=== PATIENT | female | born 1960 | race Caucasian/White ===

== ENCOUNTER 2025-06-19 06:42 | Day surgery (SDC) | payer MEDICARE ==
[2025-06-17 14:10] LABS: CREATININE 0.8 mg/dL (0.5-1.0); GLOMERULAR FILTR. RATE CALC 81.0 mL/min (>90); GLUCOSE,RANDOM 128.0 mg/dL (70-105); IMMATURE GRANULOCYTE ABSOLUTE 0.06 K/uL (0-1); NUCLEATED RED BLOOD CELLS 0.0 % (0.0-0.19); PLATELET COUNT (AUTO) 235 K/uL (130-400); RED BLOOD CELL COUNT(AUTO) 4.62 MIL/uL (4.00-5.50); RED CELL DISTRIBUTION WIDTH 12.6 % (11.0-15.5); SODIUM SERUM 140.0 mmol/L (136-145); UREA NITROGEN, BLOOD 17.0 mg/dL (7-18); WHITE BLOOD COUNT (AUTO) 7.7 K/uL (4.8-10.8)
[2025-06-17 14:22] LABS: INR 0.99 (0.85-1.15)
[2025-06-17 14:44] VITALS: BP 146/80; PULSE 77; RESP 15; TEMP 97.7
--- NOTE | 2025-06-17 16:23 | EKG ---
[facility] Test Date: 2025-06-17 Test Time: 14:44:35 Pat Name: SINAI JOYCE Department: [facility] Room: Gender: F Family Dinner Service Specialist: [id number] : 1960 Requested By: SUJATA WHITTAKER Order Number: [id number] Reading MD: Jami Tate Measurements Intervals Dania Rate: 80 P: 12 LA: 147 QRS: 37 QRSD: 86 T: 52 QT: 390 QTc: 450 Interpretive Statements Sinus rhythm Compared to ECG 04/22/2025 10:06:41 No significant changes Electronically Signed On 06-18-2025 12:29:21 ALUM OPERATOR by Jami Tate Please click the below link to view image of tracing.
[~2025-06-19] VITALS: Ht 149.9 cm; Wt 69.3 kg
[2025-06-19] VITALS (15 sets, daily range): BP systolic 140–161; BP diastolic 68–90; PULSE 68–84; RESP 14–20; TEMP 97–97.7
[~2025-06-19 06:42] MED LIST: DICL20GE TP
[2025-06-19] MEDS ORDERED: SUGAMMADEX SODIUM 200 MG/2 ML VIAL IV ONE (07:38)
[2025-06-19] MEDS ORDERED: FAMOTIDINE 20MG VIAL IV ONE (07:38)
[2025-06-19] MEDS ORDERED: LIDOCAINE PF 100MG/5ML (2%) SYRINGE 5ML ONE (07:41)
[2025-06-19] MEDS ORDERED: SUCCINYLCHOLINE CHLORIDE 20 MG/ML 10 ML VIAL ONE (07:42)
[2025-06-19] MEDS ORDERED: GLYCOPYRROLATE 0.2 MG/ML 5 ML VIAL ONE (07:42)
[2025-06-19] MEDS ORDERED: NEOSTIGMINE METHYLSULFATE 1MG/ML IV ONE (07:43)
[2025-06-19] MEDS ORDERED: MIDAZOLAM HCL 1 MG/ML 2ML VIAL ONE (07:44)
[2025-06-19] MEDS ORDERED: LACTATED RINGERS 1000ML 1,000 ML IV ONE (07:46)
[2025-06-19] MEDS ORDERED: BUPR300T53 PO (08:59)
[2025-06-19] MEDS ORDERED: GLUC1TAB61 PO (08:59)
[2025-06-19] MEDS ORDERED: LISI40TA15 PO (08:59)
[2025-06-19] MEDS ORDERED: ACET-66 PO (08:59)
[2025-06-19] MEDS ORDERED: CITA10TA89 PO (08:59)
[2025-06-19] MEDS ORDERED: OXYB5TAB20 PO (08:59)
[2025-06-19] MEDS ORDERED: PROMETHAZINE HCL 25 MG/ML 1ML AMPULE IM PRN (09:30)
[2025-06-19] MEDS ORDERED: HYDR-4060 PO (13:19)
[2025-06-19] MEDS ORDERED: CYCL5TAB3 PO (13:19)
--- NOTE | 2025-06-20 17:45 | OP ---
Operative Note: DATE OF PROCEDURE: 06/19/25 SURGEON: SUJATA WHITTAKER MD AUTOMATIC LATHE OPERATOR: Maria C Frost ANESTHESIA: General and interscalene block ANESTHESIOLOGIST/ACCOUNT GROUP SUPERVISOR: LISBETH Tavera PREOPERATIVE DIAGNOSIS: Left shoulder rotator cuff tear, subacromial impingement, acromioclavicular joint osteoarthritis POSTOPERATIVE DIAGNOSIS: Left shoulder rotator cuff tear, subacromial impingement, acromioclavicular joint osteoarthritis PROCEDURE: Left shoulder arthroscopic rotator cuff tear completion and repair, labral debridement, subacromial decompression, distal clavicle resection ESTIMATED BLOOD LOSS: 10 cc FINDINGS: On insertion of the arthroscope into the joint there was significant synovitis and degenerative labral tearing obstructing the view. After we established an anterior portal we debrided the labrum with the electrocautery Wand and debrided the synovitis likewise. We were then able to evaluate the long head of the biceps that appeared to be in good shape. The attachment of the long head of the biceps to the labrum appeared healthy. There was high- grade partial-thickness tearing of the supraspinatus adjacent to the long head of the biceps. This appeared to mostly involve the anterior portion of the supraspinatus. Low-grade partial-thickness tearing as we got around to the infraspinatus. After removing the subacromial bursa we identified the partial- thickness tear with a marking suture and completed a tear adjacent to the long head of the biceps. This was repaired then using a single FiberTape in mattress fashion with a single suture anchor. We then further completed subacromial to debridement using the bur to resect any inferiorly projecting bone spurs in a proximally2 mm of bone from the undersurface of the acromion. We also used the bur to resect the lateral8 mm of the distal clavicle. INDICATIONS: 64-year-old female with a history of left shoulder pain. They were failing conservative management and found on MRI to have high-grade partial-thickness tearing of the supraspinatus with mass effect from the acromioclavicular joint. Clinically she had signs of subacromial impingement and symptomatic acromioclavicular joint osteoarthritis.. After discussion of the risk, benefits, and alternatives, the patient voluntarily agreed to undergo the aforementioned procedure. DESCRIPTION OF PROCEDURE: Patient was properly identified in the preoperative holding area. Surgical site marking was verified and surgery consent reviewed. The patient was then taken to the operating room and placed in supine position on the OR table. After induction of general anesthesia, preoperative antibiotics were given, all bony prominences were well-padded as the patient was transitioned into beachchair position. The left upper extremity was then prep ped and draped in usual sterile fashion. Surgical timeout was done verifying correct surgery, side, site, and location to be performed. We then began the procedure by using an 18-gauge spinal needle to inject the shoulder joint with normal saline to distend the joint capsule. A posterior lateral portal was established using 11 blade and we inserted our arthroscope through this portal. We established an anterior portal using needle localization under direct visualization and placed a working cannula through this portal. We then performed a diagnostic arthroscopy with the aforementioned findings. We then evaluated the tear of the supraspinatus. We debrided the hypertrophic synovium to allow for visualization. The labrum was also debrided to a stable l eading edge. We then used an 18 gauge needle to placement then the partial- thickness tear of the supraspinatus adjacent to the long head of the biceps. We then repositioned the camera into the subacromial space and made an anterior lateral working portal. We completed the subacromial bursectomy to improve visualization and identified that the marking suture from bursal side. Upon probing the cuff in this region there was very little tissue remaining intact. We elected to complete the tear using the cautery Wand. We establishing of the knee anterior portal along the lateral aspect to get a better angle on the rotator cuff. We probed the region where we had completed the tear and identified the long head of the biceps adjacent in the wound. We then used a FiberTape with the EventKloudion suture Passer allowing us to pass this in a mattress type pattern. This was then secured to the bone just lateral to the long head of the biceps using a single suture anchor. We evaluated the repair and did not appreciate any dog ears. We trimmed the sutures. We then inserted the bur and performed our distal clavicle excision removing the lateral 8 mm of the distal clavicle. The bur was also used to resect anterolateral spurring of the acromion and approximately 2 mm of bone from the undersurface of the acromion ensuring no pressure on the rotator cuff repair. We then removed as much of the arthroscopic fluid as possible and removed the arthroscopic instruments and camera. We expressed some the remaining fluid from the surrounding soft tissues. 3-0 nylon was then used to close the skin portals. Sterile soft dressing was applied. Patient was then placed into a shoulder immobilizer, awakened from anesthesia, and taken the recovery room in stable condition. SUJATA WHITTAKER MD Jun 20, 2025 17:45
== END 2025-06-19 15:00 | disposition home or self-care (01) ==
LOC: DAH 06:42
PROVIDERS: ATTEND Student in an Organized Health Care Education/Training Program
DX: M75.112 Incomplete rotator cuff tear or rupture of left shoulder, not specified as traumatic (principal); M25.512 Pain in left shoulder; M19.012 Primary osteoarthritis, left shoulder; M75.42 Impingement syndrome of left shoulder; M25.812 Other specified joint disorders, left shoulder; F32.A Depression, unspecified; E66.9 Obesity, unspecified; I10 Essential (primary) hypertension; E78.5 Hyperlipidemia, unspecified; Z68.30 Body mass index [BMI] 30.0-30.9, adult; Z79.01 Long term (current) use of anticoagulants; Z90.710 Acquired absence of both cervix and uterus; Z79.899 Other long term (current) drug therapy
CPT/HCPCS: 93005; 80048; 85025; 85610; 85730; 36415; 29827; 29826; 29824; 64415; J1885; C1713 ×2; A4663; J7030; J7120; J1308; J3010 ×3; J1100; J0330; J3490 ×3; J2003; J0169 ×2; J2250; J2704; J2405; J2795; J2371 ×2; J0690 ×2; A6223; A4215; A4213; A4222; A4221; A4216; A4450; A4223 ×2; A4600; J2710